=== PATIENT | male | born 1980 | race Hispanic/Latino ===

== ENCOUNTER 2024-02-25 04:41 | Emergency (ER) | payer BC ==
[~2024-02-25] VITALS: Ht 167.6 cm; Wt 141.5 kg
[2024-02-25] MEDS: LACTATED RINGERS 1000ML 1,000 ML IV ONE (05:00)
[2024-02-25] MEDS: ONDANSETRON 4MG INJ IVP ONE (05:00)
[2024-02-25] MEDS: PANTOPRAZOLE 40 MG/VIAL IVP ONE (05:00)
[2024-02-25 05:11] LABS: BASOPHILS # (AUTO) 0.01 K/uL (0.00-0.20); BASOPHILS % (AUTO) 0.1 % (0.0-5.0); EOSINOPHILS # (AUTO) 0.03 K/uL (0.00-0.70); EOSINOPHILS % (AUTO) 0.3 % (0.0-8.0); HEMATOCRIT 47.6 % (42-54); IMMATURE GRANULOCYTE ABSOLUTE 0.05 K/uL (0-1); LYMPHOCYTES # (AUTO) 0.7 K/uL (1.0-4.8); LYMPHOCYTES % (AUTO) 5.8 % (21.0-51.0); MEAN CORPUSCULAR HEMOGLOBIN 29.6 pg (27.0-33.0); MEAN CORPUSCULAR VOLUME 86.9 fL (79-99); MONOCYTES # (AUTO) 0.6 K/uL (0.1-1.0); MONOCYTES % (AUTO) 4.8 % (3.0-13.0); NEUTROPHILS # (AUTO) 10.5 K/uL (1.8-7.7); NEUTROPHILS % (AUTO) 88.6 % (40.0-77.0); PLATELET COUNT (AUTO) 302 K/uL (130-400); RED BLOOD CELL COUNT(AUTO) 5.48 MIL/uL (4.50-6.20); RED CELL DISTRIBUTION WIDTH 12.9 % (11.0-15.5); WHITE BLOOD COUNT (AUTO) 11.8 K/uL (4.8-10.8)
[2024-02-25 05:20] LABS: CREATININE 1.2 mg/dL (0.5-1.3); POTASSIUM 4.3 mmol/L (3.5-5.1)
[2024-02-25 05:24] LABS: ALBUMIN 4.2 g/dL (3.5-5.0); BILIRUBIN,TOTAL 0.8 mg/dL (0.2-1.0); TOTAL PROTEIN, SERUM 8.8 g/dL (6.0-8.3)
[2024-02-25 05:27] LABS: SARS-CoV-2, RNA, NAAT NEGATIVE SARS CoV-2 (NEGATIVE)
[2024-02-25 06:02] LABS: INFLUENZA TYPE A NEGATIVE FOR TYPE A (NEG)
[2024-02-25 06:03] LABS: INFLUENZA TYPE B NEGATIVE FOR TYPE B (NEG); RAPID GROUP A STREP positive (NEGATIVE)
[2024-02-25 06:06] VITALS: BP 137/80; PULSE 89; RESP 16; O2SAT 97
[2024-02-25] MEDS ORDERED: AMOX500C2 PO (06:09)
[2024-02-25] MEDS ORDERED: ONDA4TAB10 PO (06:09)
== END 2024-02-25 06:19 | disposition home or self-care (01) ==
LOC: EDH 04:41
DX: J02.0 Streptococcal pharyngitis (principal); K76.0 Fatty (change of) liver, not elsewhere classified; Z20.822 Contact with and (suspected) exposure to COVID-19
CPT/HCPCS: 99285; 96374; 76705; 87635; 96361; 96375; 84484; 80053; 83690; 85025; 87880; 87804 ×2; 36415; J7120; J2405; C9113